=== PATIENT | female | born 1965 | race Caucasian/White ===

== ENCOUNTER 2018-02-06 15:20 | Emergency (ER) | payer OTHER ==
[~2018-02-06] VITALS: Ht 149.9 cm; Wt 68.0 kg
[2018-02-06] MEDS ORDERED: TOPROL XL25 MG PO (16:04)
[2018-02-07] MEDS ORDERED: TRAM1TAB98 (18:45)
[2018-02-07] MEDS ORDERED: FLAGYL500MG (18:45)
== END 2018-02-06 21:52 | disposition home or self-care (01) ==
LOC: ER 15:20
DX: K58.9 Irritable bowel syndrome, unspecified (principal); N20.0 Calculus of kidney; D25.9 Leiomyoma of uterus, unspecified

== ENCOUNTER → 2018-02-07 | Emergency (ER) | payer OTHER ==
[~2018-02-07] VITALS: Ht 149.9 cm; Wt 77.1 kg
[~2018-02-07] MED LIST: FLAGYL500MG; TOPROL XL25 MG PO; TRAM1TAB98
== END | disposition home or self-care (01) ==
LOC: ER 18:27
DX: N39.0 Urinary tract infection, site not specified (principal); R10.2 Pelvic and perineal pain

== ENCOUNTER 2018-02-12 13:28 | Outpatient (CLI) | payer OTHER | END 2018-02-12 13:38 | disposition home or self-care (01) | LOC: LAB 13:28 | DX: R30.0 Dysuria (principal) ==

== ENCOUNTER 2018-02-17 10:35 | Outpatient (CLI) | payer OTHER | END 2018-02-17 10:39 | disposition home or self-care (01) | LOC: LAB 10:35 | DX: N85.00 Endometrial hyperplasia, unspecified (principal); K85.90 Acute pancreatitis without necrosis or infection, unspecified ==

== ENCOUNTER 2018-02-18 09:45 | Outpatient (CLI) | payer OTHER | END 2018-02-18 10:15 | disposition home or self-care (01) | LOC: TOM 09:45 | DX: R10.2 Pelvic and perineal pain (principal); R10.9 Unspecified abdominal pain; K57.92 Diverticulitis of intestine, part unspecified, without perforation or abscess without bleeding ==

== ENCOUNTER 2018-03-06 13:21 | Inpatient (IN) | payer OTHER ==
[~2018-03-06] VITALS: Ht 149.9 cm; Wt 72.6 kg
[2018-03-06] MEDS ORDERED: HUMIRA10 MG/0.2 (15:47)
[2018-03-06] MEDS ORDERED: FENOFIBRATE145 MG PO (15:47)
[2018-03-06] MEDS ORDERED: BIOTIN1 M1 PO (15:48)
[2018-03-06] MEDS ORDERED: METRONIDAZOLE250 MG PO (15:48)
[2018-03-06] MEDS ORDERED: DOXYCYCLINE150 MG PO (15:49)
[2018-03-10] MEDS ORDERED: OXYC1TAB9 PO (12:06)
[2018-03-10] MEDS ORDERED: IBUPROFEN800 MG PO (12:06)
== END 2018-03-10 12:52 | disposition home or self-care (01) | DRG 742 ==
LOC: EDSTATUS 13:21 → CIR.AMB 13:21 → SURG 13:22 → O/R 03-07 06:59 → SURH 03-07 06:59 → SURG 03-07 15:52 → SURH 03-07 16:40
PROVIDERS: Obstetrics & Gynecology; Urology
PROC: 0UT70ZZ Resection of Bilateral Fallopian Tubes, Open Approach (ICD-10-PCS; 2018-03-07)
PROC: 0T788DZ Dilation of Bilateral Ureters with Intraluminal Device, Via Natural or Artificial Opening Endoscopic (ICD-10-PCS; 2018-03-07)
PROC: 0UT90ZL Resection of Uterus, Supracervical, Open Approach (ICD-10-PCS; principal; 2018-03-07 10:45)
PROC: 0UT20ZZ Resection of Bilateral Ovaries, Open Approach (ICD-10-PCS; 2018-03-07 10:45)
DX: N80.0 Endometriosis of uterus (principal); N39.0 Urinary tract infection, site not specified; K58.8 Other irritable bowel syndrome; N20.0 Calculus of kidney

== ENCOUNTER 2018-04-17 13:30 | Outpatient (CLI) | payer OTHER ==
[~2018-04-17 13:30] MED LIST changes: +BIOTIN1 M1 PO; +DOXYCYCLINE150 MG PO; +FENOFIBRATE145 MG PO; +HUMIRA10 MG/0.2; +IBUPROFEN800 MG PO; +METRONIDAZOLE250 MG PO; +OXYC1TAB9 PO
== END 2018-04-17 13:47 | disposition home or self-care (01) ==
LOC: RAD 13:30
DX: N20.0 Calculus of kidney (principal)

== ENCOUNTER 2019-11-03 08:45 | Outpatient (CLI) | payer OTHER | END 2019-11-03 09:00 | disposition home or self-care (01) | LOC: LAB 08:45 | DX: B27.90 Infectious mononucleosis, unspecified without complication (principal) ==

== ENCOUNTER 2020-09-17 09:26 | Outpatient (CLI) | payer OTHER ==
[2020-09-20] MEDS ORDERED: ATACAND HCT 321 EACH PO (14:59)
[2020-09-20] MEDS ORDERED: MAXIMUM D3325 MCG PO (14:59)
[2020-09-20] MEDS ORDERED: METFORMIN HCL750 MG PO (14:59)
== END 2020-09-17 09:43 | disposition home or self-care (01) ==
LOC: LAB 09:26
PROVIDERS: ATTEND Urology
DX: N20.1 Calculus of ureter (principal); I10 Essential (primary) hypertension

== ENCOUNTER 2020-09-19 14:01 | Outpatient (CLI) | payer OTHER ==
[2020-09-20] MEDS ORDERED: METFORMIN HCL750 MG PO (14:59)
[2020-09-20] MEDS ORDERED: ATACAND HCT 321 EACH PO (14:59)
[2020-09-20] MEDS ORDERED: MAXIMUM D3325 MCG PO (14:59)
== END 2020-09-19 14:12 | disposition home or self-care (01) ==
LOC: EKG 14:01
PROVIDERS: ATTEND Urology
DX: I10 Essential (primary) hypertension (principal)

== ENCOUNTER 2020-09-21 07:03 | Day surgery (SDC) | payer OTHER ==
[~2020-09-21 07:03] MED LIST changes: +ATACAND HCT 321 EACH PO; +MAXIMUM D3325 MCG PO; +METFORMIN HCL750 MG PO
== END 2020-09-21 17:51 | disposition home or self-care (01) ==
LOC: CIR.AMB 07:03
PROVIDERS: ATTEND Urology
DX: N13.2 Hydronephrosis with renal and ureteral calculous obstruction (principal); N13.1 Hydronephrosis with ureteral stricture, not elsewhere classified; Z20.828 Contact with and (suspected) exposure to other viral communicable diseases

== ENCOUNTER 2020-09-26 13:15 | Outpatient (CLI) | payer OTHER | END 2020-09-26 13:16 | disposition home or self-care (01) | LOC: RAD 13:15 | PROVIDERS: ATTEND Urology | DX: N20.1 Calculus of ureter (principal) ==

== ENCOUNTER → 2020-11-03 | Outpatient (CLI) | payer OTHER | END | disposition home or self-care (01) | LOC: RAD 17:46 | PROVIDERS: ATTEND Urology | DX: N20.1 Calculus of ureter (principal) ==

== ENCOUNTER 2022-06-28 10:07 | Day surgery (SDC) | payer OTHER ==
[~2022-06-28] VITALS: Ht 149.9 cm; Wt 72.6 kg
[~2022-06-28 10:07] MED LIST changes: +KETO10TA2 PO; +NORFLEX100MG PO
== END 2022-06-28 15:35 | disposition home or self-care (01) ==
LOC: CIR.AMB 10:07
PROVIDERS: ATTEND Orthopaedic Surgery
DX: M75.122 Complete rotator cuff tear or rupture of left shoulder, not specified as traumatic (principal); Z20.822 Contact with and (suspected) exposure to COVID-19; Z91.040 Latex allergy status; I10 Essential (primary) hypertension; E78.5 Hyperlipidemia, unspecified; Z71.6 Tobacco abuse counseling; F17.210 Nicotine dependence, cigarettes, uncomplicated; J45.909 Unspecified asthma, uncomplicated; E11.9 Type 2 diabetes mellitus without complications; Z79.84 Long term (current) use of oral hypoglycemic drugs

== ENCOUNTER 2023-04-25 07:49 | Outpatient (CLI) | payer OTHER ==
[~2023-04-25 07:49] MED LIST changes: +BUDESONIDE0.5 MG/2 M IH; +IPRAT-ALBUT 0.5-3 ML IH; +RYBELSUS7 MG PO; +SYMBICORT 16010.2 GM IH; +TUSNEL LIQUID178 ML PO; +XOPENEX0.63 MG/3 IH; +ZITHROMAX500 MG PO
== END 2023-04-25 07:59 | disposition home or self-care (01) ==
LOC: NUCLEAR 07:49
PROVIDERS: ATTEND Internal Medicine Cardiovascular Disease
DX: K80.10 Calculus of gallbladder with chronic cholecystitis without obstruction (principal)

== ENCOUNTER 2023-05-01 07:38 | Outpatient (CLI) | payer OTHER | END 2023-05-01 08:01 | disposition home or self-care (01) | LOC: RX STUDY 07:38 | PROVIDERS: ATTEND Internal Medicine Cardiovascular Disease | DX: R10.9 Unspecified abdominal pain (principal) ==

== ENCOUNTER 2023-07-02 08:25 | Outpatient (CLI) | payer OTHER | END 2023-07-02 09:09 | disposition home or self-care (01) | LOC: TOM 08:25 | PROVIDERS: ATTEND Specialist | DX: R10.2 Pelvic and perineal pain (principal) ==

== ENCOUNTER 2023-12-13 00:11 | Emergency (ER) | payer OTHER ==
[~2023-12-13] VITALS: Ht 149.9 cm; Wt 77.1 kg
[2023-12-13] MEDS ORDERED: LIPOFEN150 MG PO (00:43)
[2023-12-13] MEDS ORDERED: MOUNJARO7.5 MG/0.5 SQ (00:44)
[2023-12-13] MEDS ORDERED: ORPHENADRINE CITRATE 30 MG/ML AMPUL IM STA (01:39)
[2023-12-13] MEDS ORDERED: KETOROLAC TROMETHAMINE 60 MG VIAL IM STA (01:39)
== END 2023-12-13 02:10 | disposition home or self-care (01) ==
LOC: ER 00:11
DX: M79.606 Pain in leg, unspecified (principal); T07.XXXA Unspecified multiple injuries, initial encounter; Z91.040 Latex allergy status

== ENCOUNTER → 2024-03-26 07:44 | Outpatient (CLI) | payer OTHER ==
[~2024-03-26 07:44] MED LIST changes: +LIPOFEN150 MG PO; +MOUNJARO7.5 MG/0.5 SQ
== END | disposition home or self-care (01) ==
LOC: NUCLEAR 02-20 07:00
PROVIDERS: ATTEND Internal Medicine Cardiovascular Disease
DX: K31.84 Gastroparesis (principal); R10.9 Unspecified abdominal pain